=== PATIENT | male | born 1995 | race Two or more races ===

== ENCOUNTER 2019-06-08 06:38 | Emergency (ER) | payer SELFPAY ==
[~2019-06-08] VITALS: Ht 180.3 cm; Wt 116.1 kg
[2019-06-08 07:28] VITALS: BP 171/92
== END 2019-06-08 07:53 | disposition home or self-care (01) ==
LOC: ER 06:40
DX: S20.219A Contusion of unspecified front wall of thorax, initial encounter (principal); S63.91XA Sprain of unspecified part of right wrist and hand, initial encounter; V43.52XA Car driver injured in collision with other type car in traffic accident, initial encounter; Y93.89 Activity, other specified; Y99.8 Other external cause status; Y92.410 Unspecified street and highway as the place of occurrence of the external cause
CPT/HCPCS: 71046; 73110